=== PATIENT | male | born 1985 | race Two or more races ===

== ENCOUNTER 2019-10-27 15:08 | Emergency (ER) | payer SELFPAY ==
--- NOTE | 2019-10-27 15:43 | EDM.PDOC ---
ED HPI GENERAL MEDICAL PROBLEM - General Chief Complaint: Respiratory Problem Stated Complaint: COUGH/SRE THROAT Time Seen by Provider: 10/27/19 15:33 Source of Information: Reports: Patient History Limitations: Reports: No Limitations - History of Present Illness INITIAL COMMENTS - FREE TEXT/NARRATIVE: 34-year-old male of [place] descent presents to the ED for evaluation of a sore throat for 48 hours. Minimal nasal congestion. Generalized body aches. Mild productive cough. Appetite remains fair. Not receive a flu shot this year. He works at the [employer] and has been in [facility] with no travel history in the last several weeks. He did have some visitors from [place] but none of them were sick. Children at home are well. Does have a mild to moderate headache associated with current illness suggesting influenza. Onset: Sudden Onset Date: 10/25/19 Duration: Day(s):, Getting Worse Location: Reports: Head (Neurolyse myalgia with), Neck, Chest (Your throat nonproductive cough), Generalized Quality: Reports: Ache Severity: Moderate Improves with: Reports: Medication (Motrin helps some.) Worsens with: Reports: None Context: Denies: Activity, Exercise, Lifting, Sick Contact, Trauma, Other Associated Symptoms: Reports: Chest Pain, Cough, cough w sputum, Fever/Chills, Headaches, Loss of Appetite, Malaise. 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 [No Known Home Meds] 10/27/19 [History] Social & Family History - Living Situation & Occupation Occupation: Employed ED ROS GENERAL - Review of Systems Review Of Systems: See Below Constitutional: Reports: Fever, Fatigue, Decreased Appetite. Denies: Chills, Malaise, Weakness, Weight Loss HEENT: Reports: Throat Pain. Denies: Ear Pain Respiratory: Reports: Cough. Denies: Shortness of Breath, Wheezing, Pleuritic Chest Pain Cardiovascular: Denies: Chest Pain (Nonproductive), Blood Pressure Problem, Claudication, Dyspnea on Exertion, Edema, Lightheadedness, Orthopnea, Palpitations Endocrine: Reports: Fatigue GI/Abdominal: Reports: Decreased Appetite : Reports: No Symptoms Musculoskeletal: Reports: Muscle Pain Skin: Reports: No Symptoms Neurological: Reports: No Symptoms, Headache (Mild). Denies: Confusion, Dizziness, Numbness, Paresthesia, Pre-Existing Deficit, Seizure Psychiatric: Reports: No Symptoms Hematologic/Lymphatic: Reports: No Symptoms Immunologic: Reports: No Symptoms ED EXAM, GENERAL - Physical Exam Exam: See Below Exam Limited By: Language Barrier ([place]akes mostly Iranian.) General Appearance: Alert, WD/WN, No Apparent Distress, Mild Distress, Other ( Peers ill. He is minimally warm to palpation. Temperature is 37.3 according to nurses. Pulse was 91 respiratory to 1602 sats 97% on room air BP 1 4995.). No: Anxious, Lethargic, Obtunded Eye Exam: Bilateral Eye: Conjunctival Injection (Mild conjunctival injection bilaterally.) Ears: Other (Plenty of scar tissue left tympanic membrane compared with previous rupture and healing. The right TM is normal.) Throat/Mouth: Normal Lips, Normal Teeth, Other (Mild diffuse slight erythema of the oropharynx without any exudate. Appears to be viral) Head: Atraumatic, Normocephalic Neck: Normal Inspection, Supple, Non-Tender, Full Range of Motion. No: Lymphadenopathy (L), Lymphadenopathy (R) Respiratory/Chest: No Respiratory Distress, Lungs Clear, Normal Breath Sounds, No Accessory Muscle Use. No: Rales, Rhonchi, Wheezing Cardiovascular: Normal Peripheral Pulses, Regular Rate, Rhythm, No Edema, No Gallop, No Murmur, No Rub Peripheral Pulses: 3+: Posterior Tibial (L), Posterior Tibial (R), Dorsalis Pedis (L), Dorsalis Pedis (R) GI/Abdominal: Normal Bowel Sounds, Soft, Non-Tender, No Organomegaly, Pelvis Stable Extremities: Normal Inspection, Normal Range of Motion, Non-Tender Neurological: Alert, Oriented, CN II-XII Intact, Normal Cognition Psychiatric: Normal Affect, Normal Mood Skin Exam: Warm, Dry, Intact, Normal Color, No Rash Course - Vital Signs Last Recorded V/S: Last Vital Signs Temp 37.3 C 10/27/19 15:29 Pulse 91 10/27/19 15:29 Resp 16 10/27/19 15:29 BP 149/95 H 10/27/19 15:29 Pulse Ox 97 10/27/19 15:29 - Orders/Labs/Meds Orders: Active Orders 24 hr Category Date Time Status Isolation [COMM] Routine Oth 10/27/19 15:44 Ordered - Radiology Interpretation Free Text/Narrative:: 84-year-old male of [place] descent speaks very little Ugandan and 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 He presents with a sore throat for the last 48 hours. No nasal coryza. No pain in his ears. He does have a harsh intermittent productive mildly productive cough. Generalized myalgia and headache with decreased appetite all symptoms of influenza. Works here in [place] and has not traveled out of the [facility] first several weeks. Highly unlikely candidate for Covid- 19 infection. Plan will just check him for influenza at this time - Re-Assessments/Exams Free Text/Narrative Re-Assessment/Exam: 10/27/19 16:38 influenza screen returned as negative. For he has some other form of viral upper respiratory tract infection will be treated conservatively with Motrin 600 mg every 6 hours as needed for relief of throat pain and body ache. I think it safer for him to stay away from the workplace and he is in agreement with staying out of work until Thursday next week. The only needs reason he would need to return to hospital is if he develops more shortness of breath over the ensuing days. He will be essentially be self quarantined for next 3 days and if condition worsens he will return to the ED. Departure - Departure Time of Disposition: 16:42 Disposition: Home, Self-Care 01 Condition: Fair Clinical Impression: Viral upper respiratory tract infection - Discharge Information *PRESCRIPTION DRUG MONITORING PROGRAM REVIEWED*: Not Applicable *COPY OF PRESCRIPTION DRUG MONITORING REPORT IN PATIENT ROSMERY: Not Applicable Instructions: Viral Respiratory Infection, [id number] Referrals: PCP,None [Primary Care Provider] - Forms: ED Department Discharge, ED Return to Work/School Form Additional Instructions: Evaluation in the emergency room today in regards to sore throat and mild cough and mild headache and mild generalized myalgia. No signs of a bacterial infection were identified on physical examination. Exposure to coronavirus appears to be extremely remote since you have not traveled or been in contact with anybody with the illness. Influenza screen done in the ED today was negative. Therefore you have some other form of viral upper respiratory tract infection. Treatment is conservative with plenty of fluids. Motrin or Advil 600 mg every 6 hours as needed for sore throat, body ache or headache. Diet as tolerated. The only reason to return to the hospital is if you develop gradually worsening shortness of breath over the next 3 or 4 days. Stop work until October 30 so that you can get plenty of rest and recover from this illness. Sepsis Event Note - Focused Exam Vital Signs: Vital Signs Temp Pulse Resp BP Pulse Ox 10/27/19 15:29 37.3 C 91 16 149/95 H 97 Date Exam was Performed: 10/27/19 Time Exam was Performed: 17:37 - My Orders Last 24 Hours: My Active Orders 10/27/19 15:44 Isolation [COMM] Routine - Assessment/Plan Last 24 Hours: My Active Orders 10/27/19 15:44 Isolation [COMM] Routine
== END 2019-10-27 17:26 | disposition home or self-care (01) ==
LOC: JD.ED 15:08
DX: J06.9 Acute upper respiratory infection, unspecified (principal)
CPT/HCPCS: 87804; 99282; 99283

== ENCOUNTER 2021-08-27 10:32 | Emergency (ER) | payer SELFPAY ==
[2021-08-27] MEDS ORDERED: Aspirin 81 MG Tab.Chew PO ONE (10:59)
[2021-08-27] MEDS ORDERED: Sodium Chloride 0.9% 10 ML Syringe FLUSH PRN (10:59)
[2021-08-27] MEDS ORDERED: Sodium Chloride 0.9% 1,000 ML IV STA (12:02)
[2021-08-27] MEDS ORDERED: Iopamidol 755 Mg/ML 100 ML Bottle IVPUSH ONE (12:34)
== END 2021-08-27 13:40 | disposition home or self-care (01) ==
LOC: JD.ED 10:32
DX: D71 Functional disorders of polymorphonuclear neutrophils (principal); Z72.0 Tobacco use
CPT/HCPCS: 36415; 71045; 71260; 80053; 83735; 84484; 85025; 85379; 85610; 93005; 99285; A9270; J7030; Q9967

== ENCOUNTER 2025-02-08 20:09 | Emergency (ER) | payer SELFPAY ==
[2025-02-08] MEDS: methylPREDNISolone Sodium Succinate 125 MG/2 ML SDV IM ONE (21:38)
== END 2025-02-08 23:32 | disposition home or self-care (01) ==
LOC: JD.ED 20:09
DX: L50.0 Allergic urticaria (principal); Z79.899 Other long term (current) drug therapy
CPT/HCPCS: 71045; 96372; 99284; J2919; Q0163